=== PATIENT | male | born 1980 | race Caucasian/White ===

== ENCOUNTER → 2020-05-01 09:03 | Outpatient (BNVA) | payer OTHER, SELFPAY | PROVIDERS: PCP Internal Medicine; Referring Provider Internal Medicine; Visit Provider Urology | DX: Z76.89 Persons encountering health services in other specified circumstances (principal) ==

== ENCOUNTER → 2020-06-04 10:59 | Outpatient (BNVA) | payer OTHER, SELFPAY | PROVIDERS: Visit Provider Urology | DX: N48.89 Other specified disorders of penis (principal); G89.29 Other chronic pain; R10.2 Pelvic and perineal pain | CPT/HCPCS: 99212 ==

== ENCOUNTER → 2020-07-11 14:50 | Outpatient (BNVA) | payer OTHER, SELFPAY | PROVIDERS: Visit Provider Urology | DX: R10.2 Pelvic and perineal pain (principal) | CPT/HCPCS: 20553; J0585 ==

== ENCOUNTER → 2020-07-24 14:47 | Outpatient (BNVA) | payer OTHER, SELFPAY | PROVIDERS: Visit Provider Urology ==

== ENCOUNTER → 2021-04-18 11:31 | Outpatient (BNVA) | payer OTHER, SELFPAY | PROVIDERS: PCP Internal Medicine; Visit Provider Urology | DX: R10.32 Left lower quadrant pain (principal); R10.2 Pelvic and perineal pain; N48.89 Other specified disorders of penis; G89.29 Other chronic pain | CPT/HCPCS: 99212 ==

== ENCOUNTER 2021-09-08 11:00 | Outpatient (RCR) | payer OTHER, SELFPAY ==
--- NOTE | 2021-06-16 15:47 | MHC.PT.EP ---
[facility] [place] [facility] [place] [facility] [place] Office [address] Ayla Edwards [address] [phone] F: [phone] F: [phone] F: [phone] F: [phone] Physical Therapy Plan of Care Date of Evaluation: 06/16/21 Date of Surgery: n/a Diagnosis: pelvic and perineal pain Assessment: The patient consented to an internal and external exam of his Pelvic floor muscles. I found increased tightness and pain in the perineal body and in the superficial transverse perineal muscle on the left. Internally in the 1st and 2nd layer of muscle in the pelvic floor predominantly at midline and on the left side. Manual therapy to this region with solid pressure relaxed muscle and decreased subjective pain. Additionally, education on diaphragmatic breathing helped relax muscles. 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 He will benefit from education on intra abdominal pressure and how it affects PFM activation, body mechanics, sitting and standing posture, relaxation strategies, and self massage using pelvic wands. He will come 1-2x/week for manual therapy to facilitate relaxation to the pelvic floor. He is an excellent candidate for Physical Therapy. Frequency and Duration: The patient will be seen 2x/week Short Term Goals: 1. The patient to demonstrate good sitting posture with use of lumbar roll to decrease lumbar strain. 2. Pt to have improved understanding of proper posture and support while sleeping. 3. Pt to be able to demonstrate diaphragmatic breathing to improve pressure exchange and intra abdominal load management. 4. Pt to be independent with HEP to facilitate relaxation of the pelvic floor. Assisted Goals: 1. The patient to be able to relax PFM with self cues and breathing technique. 2. Pt to no longer have testicular and pain in his anus to allow pt to resume PLOF. 3. Pt to be able to return to work related tasks without pain. Treatment Plan: Modalities to reduce pain, spasms and effusion. Manual therapy to restore motion and function. Therapeutic exercise to improve strength and flexibility. Neuromuscular re-education for posture and balance. Therapeutic activities to return to functional activities of daily living. Electronically signed by: Herminia Keller PT DPT Please sign and return to therapist. Thank you for your referral.
--- NOTE | 2021-09-08 14:55 | MHC.PT.DC ---
[facility] [place] Office [place] Office [place] Office [address] Ayla Edwards [address] [phone] F: [phone] F: [phone] F: [phone] F: [phone] Physical Therapy Discharge Report Diagnosis: pelvic and perineal pain Date of Surgery: Date of Evaluation: 06/16/21 Date of Discharge: 09/08/21 Treatments to Date: 11 Cancellations to Date: No Shows to Date: Discharge Status: Achieved Goals Improved Function Independent with HEP Discharge Summary: Manual therapy done with patient consent internally and externally No increase in pain during manual therapy. I taught him stretches to be done to facilitate movement. Pain provocation today externally at the ishiocavernsosus. Internally on the right side I pass over a small bubble like area larger than the rest of the rectal tissue. It is in the distal portion near the EAS. He was cautioned not to use his wand on this area and to only use his pelvic wand on muscular tissue that causes trigger point like discomfort. At this point he is being discharged to a HEP. He was asked to begin a walking program. He was educated to use his wand when he felt pain, and to perform stretch exercises given last visit. He is being discharged from [facility] at this time. Electronically signed by: Herminia Keller PT DPT Please sign and return to therapist. Thank you for your referral.
--- NOTE | 2021-09-08 14:58 | MHC.PT.DC ---
[facility] [place] Office [place] Office [place] Office [address] Ayla Edwards [address] [phone] F: [phone] F: [phone] F: [phone] F: [phone] Physical Therapy Discharge Report Diagnosis: pelvic and perineal pain Date of Surgery: Date of Evaluation: 06/16/21 Date of Discharge: 09/08/21 Treatments to Date: 11 Cancellations to Date: No Shows to Date: Discharge Status: Achieved Goals Improved Function Independent with HEP Discharge Summary: Manual therapy done with patient consent internally and externally No increase in pain during manual therapy. I taught him stretches to be done to facilitate movement. Pain provocation today externally at the ishiocavernsosus. I showed him how to do manual therapy on this with his wand. Internally in the distal inch of his rectal tissue on the patient's right side I pass over a small bubble like area larger than the rest of the rectal tissue. It is in the distal portion near the EAS. He was cautioned not to use his wand on this area and to only use his pelvic wand on muscular tissue that causes trigger point like discomfort. At this point he is being discharged to a [facility] due to minimal pain, returned to PLOF, and independent with HEP and manual therapy using a pelvic wand. He was asked to continue a general walking program. He was educated to use his wand when he felt pain, and to perform stretch exercises given last visit. He is being discharged from [facility] at this time. Electronically signed by: Herminia Keller PT DPT Please sign and return to therapist. Thank you for your referral.
== END 2021-12-12 10:31 | disposition home or self-care (01) ==
LOC: HO.PT 11:00
PROVIDERS: PCP Internal Medicine; Visit Provider Urology
DX: R10.2 Pelvic and perineal pain (principal); G89.29 Other chronic pain
CPT/HCPCS: 97110; 97112; 97140; 97161; 97530

== ENCOUNTER → 2022-10-28 08:22 | Outpatient (BNVA) | payer OTHER, SELFPAY | PROVIDERS: PCP Internal Medicine; Visit Provider Urology | DX: R10.2 Pelvic and perineal pain (principal); G89.29 Other chronic pain | CPT/HCPCS: 99212 ==